=== PATIENT | female | born 1950 | race Caucasian/White ===

== ENCOUNTER 2023-10-31 11:15 | Emergency (ER) | payer MEDICARE, SELFPAY ==
[2023-10-31] VITALS (8 sets, daily range): BP systolic 114–145; BP diastolic 64–93; PULSE 69–78; BMI 30.5
[2023-10-31 12:11] LABS: % Basophils 0.8 % (0-2); % Eosinophils 1.3 % (0-6); % Immature Granulocytes 0.3 % (0-0.5); % Lymphocytes 31.1 % (20.5-51.1); % Monocytes 6.4 % (1.7-9.3); % Neutrophils 60.1 % (42.2-75.2); Absolute Basophils 0.1 10^3/uL (0-0.2); Absolute Eosinophils 0.1 10^3/uL (0-0.7); Absolute Lymphocytes 2.3 10^3/uL (1.2-3.4); Absolute Monocytes 0.5 10^3/uL (0.1-0.6); Absolute Neutrophils 4.5 10^3/uL (1.4-6.5); Hematocrit 38.9 % (37.0-47.0); Hemoglobin 12.6 g/dL (12.0-16.0); Mean Corp Hgb Conc. 32.4 g/dL (33.0-37.0); Mean Corpuscular Hgb 27.5 pg (27.0-31.0); Mean Corpuscular Volume 84.9 fL (81.0-99.0); Mean Platelet Volume 9.6 fL (7.4-10.4); Nucleated Red Blood Cells % 0 %; Platelet Count 269 10^3/uL (130-400); Red Blood Cell Count 4.58 10^6/uL (4.20-5.40); Red Cell Dist. Width 12.7 % (11.5-14.5); White Blood Cell Count 7.5 10^3/uL (4.8-10.8)
--- NOTE | 2023-10-31 12:15 | ED.GENMED ---
History of Present Illness
General
Chief Complaint: Dizziness
Source: patient
Exam Limitations: none
Time Seen by Provider: 10/31/23 11:33
Nursing documentation reviewed up to this point in time: agreed with
Travel History
Have you had any contact with someone who has COVID-19?: No
Do you have any symptoms of coronavirus? Fever > 100 degrees, chills, cough, shortness of breath, sore throat, loss of taste or smell, muscle aches, or headache?: No
History of Present Illness
History of Present Illness:
Patient presents to ED secondary to 1 week history of intermittent dizziness with nausea sensation. Denies headache. Denies vomiting. Denies fever. Denies ear pain or hearing difficulties. Denies recent illness. Denies loss of sensation or
weakness. Denies difficulty with speech or swallowing. Denies recent change in medications or diet. Patient has had history of 'vertigo' when she was a teenager. Since then, patient states that she has had multiple similar episodes every year,
usually with weather changes, but has never lasted this long.
Review of Systems
Review of Systems
Allergies reviewed?: Yes
All Other Systems: ROS reviewed and negative except as documented in HPI and ROS
Constitutional: Reports no symptoms
EENT: Reports no symptoms
Respiratory: Reports no symptoms
Cardiac: Reports no symptoms
ABD/GI: Reports nausea; Denies abdominal pain or vomiting
: Reports no symptoms
Musculoskeletal: Reports no symptoms
Skin: Reports no symptoms
Neurological: Reports dizzy; Denies weakness or numbness
Phy Exam
Physical Exam
Physical Exam:
Physical Exam
General: no apparent distress, not acutely ill. afebrile
Head: nc/at. eomi. no nystagmus.
Neck: supple. no meningeal signs.
Heart: s1/s2 regular rate and rhythm, no murmur. equal radial pulses.
Lungs: no acute respiratory distress. clear bilaterally
Abdomen: normal bowel sounds. not tender.
Neuro: alert and oriented. no focal neurological deficits. normal [id number] testing
Skin: no rash
Psychiatric: well kept. interactive and cooperative
Extremities: no edema. no calf tenderness.
Course
Orders/Labs/Results
Orders:
Orders
10/31/23 11:46
Electrocardiogram (*1) Urgent
Reason for Study: Vertigo / Dizzy
CT Head W/o Iv Contrast Urgent
Comment:
Reason For Exam: vertigo/dizzy
10/31/23 11:47
EKG- Treatment ONCE
EKG- Treatment ONCE
Orthostatic VS- Treatment ONCE
10/31/23 11:51
Complete Blood Count/With Diff Urgent
Comprehensive Metabolic Panel Urgent
Magnesium Urgent
10/31/23 12:57
Troponin I Urgent
Urinalysis Reflex To Culture Urgent
Date Specimen was Collected: 10/31/23
Time Specimen was Collected: 12:55
Urine Microscopic Reflex Cult Urgent
Abnormal Lab Results
10/31/23 10/31/23
11:51 12:57
MCHC 32.4 L g/dL
(33.0-37.0)
BUN 24 H mg/dl
(7-17)
Ur Occult Blood Reflex Trace A
(Negative)
Leukocyte Esterase Rfl Trace A
(Negative)
10/31/23 11:51
10/31/23 11:51
Vital Signs
Initial and Last Documented VS:
Initial Vital Signs
Temp Pulse Resp BP Pulse Ox
98.0 F 84 18 145/93 97
10/31/23 11:17 10/31/23 11:17 10/31/23 11:17 10/31/23 11:17 10/31/23 11:17
Last Documented Vital Signs
Temp Pulse Resp BP Pulse Ox
98.0 F 67 24 130/64 99
10/31/23 11:17 10/31/23 14:15 10/31/23 14:15 10/31/23 14:00 10/31/23 14:15
MDM/Problems Addressed
MDM/Problems Addressed:
Patient with an unremarkable workup in ED, including CT head and blood work. Mildly elevated BUN to creatinine ratio noted, suggestive of potential dehydration, which may be exacerbating patient's symptoms. As such, recommended patient to increase
fluid intake at home along with PCP or neurology follow-up as an outpatient. Patient does not wish to try meclizine, as medicine has made her symptoms worse in the past. Otherwise, patient is afebrile, hemodynamically stable, neurologically
intact, and walking with steady gait independently, at time of discharge.
*EKG
Interpreted by ED Provider?: Yes
EKG Intrepretation Date: 10/31/23
Heart Rate: 66
Rate: normal
Rhythm: sinus
[place]: normal axis
*Critical Care Note
Total Time (30-74mins, 75-104mins- exclusive of procedures): Not Applicable
ED Attending Note
-
Portions of this chart may have been created with voice recognition software.� Occasional wrong word or��sound alike� substitutions may have occurred due to the inherent limitations of voice recognition software.
Discharge Plan
Departure
Patient Disposition: Home (Routine Discharge)
Date of Disposition: 10/31/23
Time of Disposition: 14:20
Patient with high blood pressure during this ER visit?: Yes
Condition: Good
Discharge Problem:
Dizziness
Instructions: Dizziness
Referrals:
Raad Aj MD [Active] -
Ayaan Jolley DO [Family Provider] -
Activity Restrictions/Additional Instructions:
As discussed, please increase fluid intake at home along with outpatient follow-up with your primary care physician and/or referred neurologist. Please return to ED with worsening symptoms.
Interventions
Interventions:
*Risk Screen - Suicide Last Done: 10/31/23 11:43
*General Assessment Last Done: 10/31/23 11:43
*Neglect/Abuse Screening Last Done: 10/31/23 11:43
ED- Fall Risk Assessment Last Done: 10/31/23 11:43
*ED COVID-19 Vaccine History Last Done: 10/31/23 11:43
*Nursing Disposition Last Done: 10/31/23 14:28
ED- Neurological Assessment Last Done: 10/31/23 11:43
Discharge Date and Time
Discharge Date/Time: 10/31/23 14:29
Print Language: [id number]
[2023-10-31 12:25] LABS: ALT (SGPT) 19 U/L (0-35); AST (SGOT) 22 U/L (14-36); Albumin 4.2 g/dl (3.5-5.0); Alkaline Phosphatase 90 U/L (38-126); Blood Urea Nitrogen 24 mg/dl (7-17); Calcium 9.5 mg/dl (8.4-10.2); Carbon Dioxide 24 mmol/L (22-30); Chloride 106 mmol/L (98-107); Estimated Creatinine Clearance 80 ml/min; Glucose 96 mg/dl (70-99); Magnesium 1.8 mg/dl (1.6-2.3); Sodium 140 mmol/L (135-145); Total Bilirubin 0.8 mg/dl (0.2-1.3); Total Protein 6.8 g/dl (6.3-8.2); eGFR > 60.00
[2023-10-31 13:36] LABS: Troponin I < 0.012 ng/ml
[2023-10-31 13:54] LABS: Urine Albumin Negative (Neg - Trace); Urine Bilirubin Negative (Negative); Urine Character Clear (Clear); Urine Color Yellow; Urine Glucose Negative (Negative); Urine Ketone Negative (Negative); Urine Leukocyte Trace (Negative); Urine Nitrite Negative (Negative); Urine Occult Blood Trace (Negative); Urine Urobilinogen Negative (Neg - 1+)
[2023-10-31 14:57] LABS: Urine Red Blood Cell 0-2 /HPF (0-2); Urine White Cell 0-2 /HPF (0-5)
== END 2023-10-31 14:29 | disposition home or self-care (01) ==
LOC: EMR 11:15
PROVIDERS: EMERGENCY PHYSICIAN Emergency Medicine; FAMILY PHYSICIAN Family Medicine
DX: R42 Dizziness and giddiness (principal); R11.0 Nausea; R03.0 Elevated blood-pressure reading, without diagnosis of hypertension; K21.9 Gastro-esophageal reflux disease without esophagitis
CPT/HCPCS: 99285; 70450; 80053; 81003; 81015; 83735; 84484; 85025; 93005